=== PATIENT | male | born 1990 | race American Indian/Alaskan Native ===

== ENCOUNTER 2019-11-15 14:19 | Emergency (ER) | payer OTHER ==
--- NOTE | 2019-11-15 15:06 | Event Note ---
ED Screening Note Date of service: 11/15/19 Time: 15:02 ED Screening Note: Patient complains of shortness of breath and chest pain x3 days History of asthma Also states cough Patient does admit to an 11-hour car ride 2 weeks ago, however denies any leg pain or swelling Denies any history of DVT/PE This initial assessment/diagnostic orders/clinical plan/treatment(s) is/are subject to change based on patients health status, clinical progression and re- assessment by fellow clinical providers in the ED. Further treatment and workup at subsequent clinical providers discretion. Patient/guardian urged not to elope from the ED as their condition may be serious if not clinically assessed and m anaged. Initial orders include: labs CXR ekg
[2019-11-15 15:40] LABS: Basophils % (Auto) 0.5 % (0.0-1.8); Eosinophils # (Auto) 0.1 K/mm3 (0.0-0.4); Eosinophils % (Auto) 1.7 % (0.0-4.3); Hemoglobin 16.4 gm/dl (11.8-15.2); Lymphocytes # (Auto) 2.5 K/mm3 (1.2-5.4); Lymphocytes % (Auto) 44.2 % (13.4-35.0); Mean Corpuscular HGB Conc 34 % (32-34); Mean Corpuscular Volume 96 fl (84-94); Monocytes # (Auto) 0.5 K/mm3 (0.0-0.8); Monocytes % (Auto) 8.5 % (0.0-7.3); Platelet Count 238 K/mm3 (140-440); Red Cell Distribution Width 12.8 % (13.2-15.2)
[2019-11-15 16:00] LABS: Alanine Aminotransferase 50 units/L (7-56); Albumin 4.4 g/dL (3.9-5); BUN/Creatinine Ratio 8; Blood Urea Nitrogen 9 mg/dL (9-20); Calcium 9.5 mg/dL (8.4-10.2); Hemolysis Index 14
--- NOTE | 2019-11-15 16:18 | XRay Report ---
CHEST 2 VIEWS INDICATION / CLINICAL INFORMATION: Shortness of breath and chest pain. Cough, congestion and difficulty breathing for 3 days. COMPARISON: None available. FINDINGS: SUPPORT DEVICES: None. HEART / MEDIASTINUM: The heart size and pulmonary vasculature are normal. The aorta is normal in michael pratibha. LUNGS / PLEURA: No significant pulmonary or pleural abnormality. No pneumothorax. ADDITIONAL FINDINGS: No significant additional findings. IMPRESSION: No acute findings. Signer Name: Petey Lehmna MD Signed: 11/15/2019 4:13 PM Workstation Name: [id number]
[2019-11-15 16:49] VITALS: BP 136/93
[2019-11-15] MEDS ORDERED: predniSONE 20 MG TAB PO ONE (16:52)
[2019-11-15] MEDS ORDERED: IPRATROPIUM/ALBUTEROL SULFATE 3 ML AMPUL.NEB IH ONE (16:52)
--- NOTE | 2019-11-15 17:09 | Emergency Department Report ---
ED Shortness of Breath HPI - General Chief Complaint: Upper Respiratory Infection Stated Complaint: LUIS Time Seen by Provider: 11/15/19 15:01 Source: patient Mode of arrival: Ambulatory Limitations: No Limitations - History of Present Illness Initial Comments: Mr. Buitrago is a 29-year-old male with history of tobacco use, history of vaping, childhood asthma who presents with shortness of breath. Shortness of breath began after cleaning [place] [employer] building. He had nonproductive cough and mild wheezing. He denies fever. Denies chills. Denies any sick contacts. Currently no chest pain. No abdominal pain. Symptoms are mild to moderate. He has not had a asthma attack since childhood age. He stopped smoking cigarettes sometime ago. He uses vaping to satisfy his need for nicotine. MD Complaint: shortness of breath, cough -: Gradual, week(s) (1) Severity: moderate Consistency: constant Improves With: nothing Worsens With: nothing Known History Of: asthma, other (Cigarette use, vaping) - Related Data Previous Rx's Medication Instructions Recorded Last Taken Type Albuterol Mdi (or & Nicu Only) 2 puff IH QID PRN #8.5 gram 11/15/19 Unknown Rx [ProAir HFA Inhaler] Prednisone [predniSONE 10 mg 10 mg PO .TAPER #1 tab.ds.pk 11/15/19 Unknown Rx (6-Day Pack, 21 Tabs)] Allergies Allergy/AdvReac Type Severity Reaction Status Date / Time No Known Allergies Allergy Unverified 11/15/19 14:24 ED Review of Systems ROS: Stated complaint: LUIS Other details as noted in HPI Comment: All other systems reviewed and negative Constitutional: denies: fever, malaise Respiratory: cough, shortness of breath Cardiovascular: denies: chest pain Gastrointestinal: denies: abdominal pain, nausea ED Past Medical Hx - Past Medical History Previous Medical History?: Yes Hx Asthma: Yes - Surgical History Past Surgical History?: No - Social History Smoking Status: Current Every Day Smoker Substance Use Type: Alcohol - Medications Home Medications: Home Medications Medication Instructions Recorded Confirmed Last Taken Type Albuterol Mdi (or & Nicu Only) 2 puff IH QID PRN #8.5 gram 11/15/19 Unknown Rx [ProAir HFA Inhaler] Prednisone [predniSONE 10 mg 10 mg PO .TAPER #1 tab.ds.pk 11/15/19 Unknown Rx (6-Day Pack, 21 Tabs)] ED Physical Exam - General Limitations: No Limitations General appearance: alert, in no apparent distress - Head Head exam: Present: atraumatic, normocephalic - Eye Eye exam: Present: normal appearance - ENT ENT exam: Present: mucous membranes moist - Neck Neck exam: Present: normal inspection, full ROM - Respiratory Respiratory exam: Present: normal lung sounds bilaterally. Absent: respiratory distress, wheezes, rales, rhonchi - Cardiovascular Cardiovascular Exam: Present: regular rate, normal rhythm, normal heart sounds. Absent: systolic murmur, diastolic murmur, rubs, gallop - GI/Abdominal GI/Abdominal exam: Present: soft, normal bowel sounds. Absent: distended, tenderness, guarding, rebound - Rectal Rectal exam: Present: deferred - Extremities Exam Extremities exam: Present: normal inspection - Neurological Exam Neurological exam: Present: alert, oriented X3 - Psychiatric Psychiatric exam: Present: normal affect, normal mood - Skin Skin exam: Present: warm, dry, intact, normal color. Absent: rash ED Course Vital Signs 11/15/19 14:25 Temperature 98.5 F Pulse Rate 111 H Respiratory 20 Rate Blood Pressure 136/93 O2 Sat by Pulse 98 Oximetry ED Medical Decision Making - Lab Data Result diagrams: 11/15/19 15:26 11/15/19 15:26 Laboratory Results - last 24 hr 11/15/19 11/15/19 15:26 15:26 WBC 5.7 RBC 5.00 Hgb 16.4 H Hct 48.0 H MCV 96 H MCH 33 H MCHC 34 RDW 12.8 L Plt Count 238 Lymph % (Auto) 44.2 H Bee % (Auto) 8.5 H Eos % (Auto) 1.7 Baso % (Auto) 0.5 Lymph # 2.5 Bee # 0.5 Eos # 0.1 Baso # 0.0 Seg Neutrophils % 45.1 Seg Neutrophils # 2.6 Sodium 139 Potassium 4.0 Chloride 101.9 Carbon Dioxide 26 Anion Gap 15 BUN 9 Creatinine 1.1 Estimated GFR > 60 BUN/Creatinine Ratio 8 Glucose 98 Calcium 9.5 Total Bilirubin 0.70 AST 28 ALT 50 Alkaline Phosphatase 53 Total Protein 7.6 Albumin 4.4 Albumin/Globulin Ratio 1.4 - Radiology Data Radiology results: report reviewed Chest radiograph: No acute findings according to radiology report, normal exam according to radiology impression - Medical Decision Making Mr. Buitrago presents with 1 week of shortness of breath. No evidence of pneumonia. No risk factors to suggest pulmonary embolism. He appears well with normal lung exam. I suspect asthma exacerbation due to dust mold exposure and likely heat. I strongly strongly encouraged patient to stop vaping. I provided verbal education regarding vaping lung injury. I also prescribed albuterol MDI prednisone. Given referral to outpatient medicine physician. After receiving DuoNeb in the emergency department, patient stated that his symptoms improved. I instructed him to return to the emergency department if his symptoms did not completely resolved. Critical care attestation.: If time is entered above; I have spent that time in minutes in the direct care of this critically ill patient, excluding procedure time. ED Disposition Clinical Impression: Dyspnea, Asthma exacerbation Disposition: DC-01 TO HOME OR SELFCARE Is pt being admited?: No Does the pt Need Aspirin: No Condition: Stable Instructions: Asthma (ED) Prescriptions: Prednisone [predniSONE 10 mg (6-Day Pack, 21 Tabs)] 10 mg PO .TAPER #1 tab.ds.pk Albuterol Mdi (or & Nicu Only) [ProAir HFA Inhaler] 2 puff IH QID PRN #8.5 gram PRN Reason: Shortness Of Breath Referrals: FLOYD THOMAS MD [Staff Physician] - 3-5 Days Forms: Work/School Release Form(ED)
== END 2019-11-15 18:27 | disposition home or self-care (01) ==
LOC: ED 14:19
DX: J45.901 Unspecified asthma with (acute) exacerbation (principal); F17.200 Nicotine dependence, unspecified, uncomplicated; Z79.899 Other long term (current) drug therapy
CPT/HCPCS: 36415; 71046; 80053; 85025; 93005; 94640; 99284; J7512